=== PATIENT | female | born 1965 | race Caucasian/White ===

== ENCOUNTER 2019-01-03 13:14 | Inpatient (IN) | payer MEDICAID ==
[~2019-01-03] VITALS: Ht 157.5 cm; Wt 59.0 kg
[2019-01-03 13:42] LABS: APPEARANCE CLEAR (CLEAR); COLOR STRAW (YELLOW); GLUCOSE 1000 mg/dL (NEGATIVE); KETONE NEGATIVE (NEGATIVE); NITRITE NEGATIVE (NEGATIVE); PROTEIN NEGATIVE (NEGATIVE)
[2019-01-03 13:43] LABS: BILIRUBIN NEGATIVE (NEGATIVE); UROBILINOGEN NORMAL (NORMAL)
[2019-01-03 13:45] VITALS: BP 159/90
[2019-01-03 13:47] LABS: BASOPHILS 0.1 % (0-2); EOSINOPHILS 1.3 % (0-7); HEMATOCRIT 35.5 % (36.0-48.0); HEMOGLOBIN 12.9 g/dL (12-16); IMMATURE GRANULOCYTES 0.1 % (0-5); LYMPHOCYTES 23.3 % (15-50); MCH 32.7 pg (26.0-34.0); MCHC 36.3 g/dL (31.0-37.0); MCV 89.9 fL (80.0-100.0); MEAN PLATELET VOLUME 9.8 fL (7.4-10.4); MONOCYTES 6.7 % (2-11); NEUTROPHILS 68.5 % (40-80); PLATELET COUNT 291 10x3/uL (130-400); RBC 3.95 10x6/uL (4.00-5.40); RDW 13.2 % (11.5-14.5)
[2019-01-03 13:51] LABS: KETONE - SERUM NEGATIVE (NEGATIVE)
[2019-01-03 13:52] LABS: UDS - AMPHET NEGATIVE QUAL (NEGATIVE); UDS - BARB NEGATIVE QUAL (NEGATIVE); UDS - BENZO NEGATIVE QUAL (NEGATIVE); UDS - COCAINE NEGATIVE QUAL (NEGATIVE); UDS - OPIATE NEGATIVE QUAL (NEGATIVE); UDS - PCP NEGATIVE QUAL (NEGATIVE); UDS - THC NEGATIVE QUAL (NEGATIVE)
--- NOTE | 2019-01-03 13:57 | NUR ---
PT LEAVING FLOOR VIA STRETCHER TO MEDICAL IMAGING FOR ORDERED CT AT THIS TIME. NO SIGNS DISTRESS NOTED.
[2019-01-03 14:00] LABS: APTT 23.9 SECONDS (22.8-39.4); INR 0.93 (0.85-1.17)
[2019-01-03 14:12] LABS: ALBUMIN 3.9 g/dL (3.4-5.0); ALKALINE PHOSPHATASE 80 U/L (46-116); ALT (SGPT) 23 U/L (10-68); BILIRUBIN - TOTAL 0.37 mg/dL (0.2-1.3); CALCIUM 9.3 mg/dL (8.5-10.1); CARBON DIOXIDE 25.2 mmol/L (21.0-32.0); CHLORIDE - SERUM 97 mmol/L (98-107); CKMB 1.7 U/L (0.0-3.6); CREATINE KINASE 75 UL (21-215); CREATININE - SERUM 0.8 mg/dL (0.6-1.3); MAGNESIUM - SERUM 1.5 mg/dL (1.8-2.4); POTASSIUM - SERUM 3.4 mmol/L (3.5-5.1); PROTEIN - SERUM 7.1 g/dL (6.4-8.2); SODIUM 131 mmol/L (136-145); THYROID STIMULATING HORMONE 2.13 uIU/mL (0.36-3.74); UREA NITROGEN 8 mg/dL (7-18); eGFR NON AFRICAN AMERICAN 79 mL/min (90-120)
[2019-01-03 14:13] LABS: CALC OSMOLALITY 279 mosm/kg (275-300); TROPONIN-I < 0.017 ng/mL (0.000-0.060)
[2019-01-03 14:16] LABS: GLUCOSE 448 mg/dL (74-106)
[2019-01-03 14:45] VITALS: BP 157/83
--- NOTE | 2019-01-03 14:58 | NUR ---
FSBS 243
--- NOTE | 2019-01-03 14:59 | NUR ---
PT PRESENTS VIA [facility] WITH CC OF ALTERED MENTAL STATUS. PT IS AWAKE ALERT AND ORIENTED WITH AN INAPPROPRIATE AFFECT UPON ARRIVAL IN ED - SHE RESPONDS TO QUESTIONS APPROPRIATELY BUT GIGGLES DURING CONVERSATION AND EXCESSIVELY TWITCHY DURING ASSESSMENT. AT 1430 PT IS CALMER AND ENGAGING IN CONVERSATION WITH THIS NURSE. SHE DENIES DRUG USE. SHE DOES REPORT THAT SHE USED TO TAKE METFORMIN BUT HAS NOT TAKEN IT "IN A LONG TIME"
[2019-01-03 16:01] VITALS: BP 172/87
--- NOTE | 2019-01-03 16:22 | NUR ---
FSBS 150 - NO INSULIN GIVEN
--- NOTE | 2019-01-03 17:31 | NUR ---
PT AAOX4 - ASK FOR WATER TO DRINK -
--- NOTE | 2019-01-03 17:48 | MORECARE ---
CASE MANAGEMENT DISCHARGE SUMMARY PATIENT: BANDAR PARRA UNIT: [id number] ADM DATE: 01/03/19 AGE: 53 : 63 SEX: F ROOM/BED: D.2222 AUTHOR: VINNY HYDE PHYSICIAN: REFERRING PHYSICIAN: SALOME GLYNN MD DATE OF SERVICE: 01/03/19 Discharge Plan Patient Name: BANDAR PARRA Facility: [facility]:[place] : 1965 Planned Disposition: Anticipated Discharge Date: Discharge Date: Expected LOS: Initial Reviewer: [email or web address] Initial Review Date: 01/03/2019 Generated: 01/03/19 6:48 pm DCP- Discharge Planning Updated by [email or web address]: Frances Granado on 01/03/19 4:[address] Patient Name: BANDAR PARRA Admission Status: ER Accout number: [id number] Admission Date: 01-03-2019 : 1965 Admission Diagnosis: Attending: SALOME GLYNN Current LOS: 1 Anticipated DC Date: Planned Disposition: Primary Insurance: MEDICAID [place] Discharge Planning Comments: CM ATTEMPTED TO MEET WITH PATIENT BUT SHE IS VERY CONFUSED AND DOES NOT ANSWER QUESTIONS APPROPRIATLY. NO FAMILY OR FRIENDS HERE WITH HER AT THIS TIME. CM TO FOLLOW. Health Care Marketing Specialist: Frances Granado Patient Name: BANDAR PARRA Page [id number] at 1748 All edits/amendments must be made on the electronic document DICTATION DATE: 01/03/191747 LEATHER SPRAYER: MISTY 01/03/191747 RPT#: [id number] DC DATE: STATUS: ADM IN [facility] [address] [place] [address] END OF REPORT
[2019-01-03 17:51] VITALS: BP 157/89
--- NOTE | 2019-01-03 19:10 | NUR ---
FINGER STICK BLOOD SUGAR 163.
--- NOTE | 2019-01-03 19:45 | NUR ---
STOP TIME FOR NS IS 1450.
[2019-01-03 20:03] LABS: MAGNESIUM - SERUM 1.4 mg/dL (1.8-2.4); PHOSPHOROUS 2.9 mg/dL (2.5-4.9)
--- NOTE | 2019-01-03 21:30 | NUR ---
PT ARRIVED TO THE FLOOR. ALERT NO SIGNS OF DISTRESS. BREATHING EVEN AND UNLABORED. PT PULLED IV OUT. RESITED IV RT FA 20G ATTEMPTS X1. PT TOLERATED WELL. WILL BEGIN IV FLUIDS. BOWEL SOUNDS ACTIVE. LUNG SOUNDS CLEAR. WILL CONTINUE PLAN OF CARE. CALL LIGHT IN REACH. BED LOWERED AND LOCKED.
[2019-01-03 22:58] VITALS: BP 153/68; BMI 23.8
[2019-01-03 23:56] LABS: CALCIUM 8.2 mg/dL (8.5-10.1); CHLORIDE - SERUM 105 mmol/L (98-107); CREATININE - SERUM 0.7 mg/dL (0.6-1.3); SODIUM 140 mmol/L (136-145); UREA NITROGEN 8 mg/dL (7-18); eGFR NON AFRICAN AMERICAN > 90 mL/min (90-120)
[2019-01-03 23:57] LABS: CALC OSMOLALITY 282 mosm/kg (275-300); GLUCOSE 203 mg/dL (74-106); POTASSIUM - SERUM 2.9 mmol/L (3.5-5.1)
[2019-01-04] VITALS: BP 126/65
--- NOTE | 2019-01-04 03:19 | NUR ---
RECEIVED PT FROM ER. ALERT AND ORIENTED BUT SEEMS TO BE CONFUSED, ANXIOUS, AND IRRITATED AT TIMES. BREATHING UNLABORED AND DENIES PAIN AT THIS TIME. SHE HAS LOTS OF TWITCHING OF THE HANDS AND FEET WHILE AT REST. IV CLEAN DRY AND INTACT. BED LOW, CALL LIGHT IN REACH, RAILS UP X 2.
[2019-01-04 04:00] VITALS: BP 131/60
[2019-01-04 05:37] LABS: BASOPHILS 0.3 % (0-2); EOSINOPHILS 2.5 % (0-7); HEMATOCRIT 36.6 % (36.0-48.0); HEMOGLOBIN 12.8 g/dL (12-16); IMMATURE GRANULOCYTES 0.3 % (0-5); LYMPHOCYTES 44.3 % (15-50); MCH 31.8 pg (26.0-34.0); MCV 90.8 fL (80.0-100.0); MEAN PLATELET VOLUME 9.5 fL (7.4-10.4); MONOCYTES 7.2 % (2-11); NEUTROPHILS 45.4 % (40-80); PLATELET COUNT 299 10x3/uL (130-400); RBC 4.03 10x6/uL (4.00-5.40); RDW 13.8 % (11.5-14.5); WBC 7.3 10x3/uL (4.8-10.8)
[2019-01-04 06:13] LABS: CALC OSMOLALITY 280 mosm/kg (275-300); CALCIUM 8.7 mg/dL (8.5-10.1); CARBON DIOXIDE 27.6 mmol/L (21.0-32.0); CHLORIDE - SERUM 105 mmol/L (98-107); CREATININE - SERUM 0.6 mg/dL (0.6-1.3); GLUCOSE 129 mg/dL (74-106); MAGNESIUM - SERUM 1.6 mg/dL (1.8-2.4); PHOSPHOROUS 3.5 mg/dL (2.5-4.9); POTASSIUM - SERUM 3.1 mmol/L (3.5-5.1); SODIUM 141 mmol/L (136-145); UREA NITROGEN 8 mg/dL (7-18); eGFR NON AFRICAN AMERICAN > 90 mL/min (90-120)
[2019-01-04 06:16] LABS: KETONE - SERUM NEGATIVE (NEGATIVE)
--- NOTE | 2019-01-04 07:32 | NUR ---
PT IS SITTING IN BEDSIDE CHAIR. PT IS AAO X 4 BUT IS FIDGETY AND PICKS CONTINUOUSLY AT IV SITE. PT IS ABLE TO ANSWER QUESTIONS APPROPRIATELY BUT RAMBLES WITH CONVERSATION AFTER ANSWERING. PT DENIES PRESENCE OF N/V/ AT THIS TIME. PT REPORTS PAIN TO LOWER BACK AND NECK DESCRIBED ACHING/DULL 2/10. PT DENIES NEEDS AT THIS TIME. BED IS IN THE LOWEST POSITION. CALL LIGHT AND BEDSIDE TABLE ARE WITHIN REACH. SIDE RAILS X 2. PT INSTRUCTED ON USE OF CALL LIGHT. PT VERBALIZES UNDERSTANDING. PT REFUSES TELEMETRY, STATES "I FEEL LIKE IT IS MOLESTING ME". ELECTRONICS DETAIL DRAFTSPERSON RETURNED TO MONITOR STATION. PT DENIES FURTHER NEEDS. WILL CONT TO MONITOR.
[2019-01-04 09:05] VITALS: BP 170/81
[2019-01-04 12:57] VITALS: BP 153/86
[2019-01-04 13:12] VITALS: Ht 157.5 cm; Wt 59.0 kg
--- NOTE | 2019-01-04 17:08 | NUR ---
PT WALKING AROUND ROOM. PT IS AAO X 4. PT REMOVED PIV TO LEFT WRIST, STATS, "IM GOOD. IM DONE. IM GOING HOME. THE DR JUST RELEASED ME". PT IS REFUSING RESITE OF IV AT THIS TIME. PT INFORMED OF DISCHARGE STATUS AT THIS TIME. PT CONT WITH "I AM GOOD MY VITALS ARE GOOD AND I AM GOING HOME. HE JUST RELEASED ME BUT HE ISNT DONE YET". WILL CONT TO MONITOR PT.
--- NOTE | 2019-01-04 17:35 | NUR ---
PT NOT IN ROOM. PT NOT ON FLOOR AT THIS TIME. PT IS NOT IN VENDING MACHINE AREA. ATTEMPT PHONE CALL PLACED TO PHONE NUMBER ON FILE. NO ANSWER. TAMIKA CROWN PRESSER NOTIFIED. DR GLYNN CALLED AND NOTIFIED OF PT STATUS. INFORMED TO HOLD ROOM TO SEE IF PT RETURNS. WILL CONT TO KEEP EYE OUT FOR PT RETURN.
--- NOTE | 2019-01-04 17:48 | NUR ---
ATTEMPT #2 PHONE CALL PLACED TO PHONE NUMBER ON FILE. NO ANSWER. UNABLE TO LEAVE VOICE MAIL.
--- NOTE | 2019-01-04 18:40 | NUR ---
PT CONTINUES WITHOUT ANSWERING ATTEMPTED PHONE CALLS. PT HAS NOT RETURNED TO FLOOR. WILL DISCHARGE AMA.
--- NOTE | 2019-01-05 13:45 | CN ---
PATIENT NAME:BANDAR PARRA MEDICAL RECORD: [id number] : 63 LOCATION:D.MS [place] ADMIT DATE: 01/03/19 ACCOUNT: [id number] CONSULTING PHYSICIAN: NEVA VELAZQUEZ MD REFERRING PHYSICIAN: SALOME GLYNN MD DATE OF CONSULTATION: 01/04/2019 PSYCHIATRIC CONSULTATION IDENTIFYING DATA: The patient is 53 years old and she is admitted to the hospital on a voluntary basis. CHIEF COMPLAINT: Mental status change. HISTORY OF PRESENT ILLNESS: The patient presented to the Emergency Room confused and only oriented to person. She was found to be hyponatremic, had an elevated blood sugar, was hypoxic and hypokalemic, and subsequently was admitted to the hospital. CT of the head revealed no acute abnormality as did chest x-ray. On interview, the patient is cooperative, but clearly impaired. She is only oriented to person, but it is not related to a dementia. 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 Obtaining history that is questionably reliable. She clearly has been in a number of psychiatric hospitals that I mentioned and knows or has had contact with several psychiatrists that I mentioned and tells me that, in the past, she has been a patient at [facility] and even more recently at [facility]. She cannot explain why she is not taking any psychiatric medicines at this time. She denies that she would seek to harm herself or others. She clearly is psychotic and is disorganized with some mood lability. ASSESSMENT: Schizoaffective disorder. PLAN: The patient is not acutely suicidal or homicidal. She is however psychotic. I do not believe the psychotic symptoms rise to the level of an involuntary commitment; but I encouraged her strongly to accept psychiatric hospitalization from here, but she has refused. She does agree to a followup appointment; so if case management would please make her an appointment with the [facility] center, I will start her on an antipsychotic and mood stabilizing medication. TRANSINT:[id number] Voice Confirmation ID: [id number] DOCUMENT ID: [id number] NEVA VELAZQUEZ MD at 1345 CC: [id number] DICTATION DATE: 01/04/19 1725 RN OBGYN: 01/04/191947 DIS IN 01/04/19 [facility] [address] [id number]
== END 2019-01-04 18:41 | disposition left against medical advice (07) | DRG 637 ==
LOC: D.ER 13:14 → D.MS 15:22
PROVIDERS: Family Medicine; ADMIT Internal Medicine Nephrology; ATTEND Internal Medicine Nephrology
DX: E11.65 Type 2 diabetes mellitus with hyperglycemia (principal); G92 Toxic encephalopathy; E87.1 Hypo-osmolality and hyponatremia; R09.02 Hypoxemia; E87.6 Hypokalemia; E83.42 Hypomagnesemia; F25.9 Schizoaffective disorder, unspecified; Z91.19 Patient's noncompliance with other medical treatment and regimen